=== PATIENT | female | born 1995 | race African-American/Black ===

== ENCOUNTER 2017-10-18 08:13 | Emergency (ER) | payer SELFPAY ==
[~2017-10-18] VITALS: Ht 162.6 cm; Wt 79.0 kg
[2017-10-18 08:19] VITALS: BP 121/73
[2017-10-18] MEDS ORDERED: DIPHENHYDRAMINE 25MG CAPSULE PO ONE (08:45)
== END 2017-10-18 09:06 | disposition home or self-care (01) ==
LOC: ER 08:20
DX: T63.301A Toxic effect of unspecified spider venom, accidental (unintentional), initial encounter (principal); Y92.89 Other specified places as the place of occurrence of the external cause
CPT/HCPCS: 99283; Z7610; Q0163